=== PATIENT | female | born 1990 | race Caucasian/White ===

== ENCOUNTER 2024-01-27 10:49 | Emergency (ER) | payer BC ==
[2024-01-27 10:54] VITALS: BP 129/80; RESP 20; TEMP 98.6; BMI 35.4
[2024-01-27] MEDS ORDERED: DICLOXACILLIN SODIUM 250 MG CAPSULE PO ONE (12:11)
[2024-01-27] MEDS: ACETAMINOPHEN 1000 MG/100 ML BAG IVPB ONE (12:28)
[2024-01-27] MEDS: SODIUM CHLORIDE 1,000 ML IV STA (12:29)
[2024-01-27] MEDS: VANCOMYCIN 1,000 MG in DEXTROSE 5%-WATER - 250 ML IVPB ONE (12:29)
[2024-01-27] MEDS: CEFAZOLIN 1 GM in DEXTROSE 5%-WATER - 50 ML IVPB ONE (12:29)
[2024-01-27] MEDS ORDERED: ACETAMINOPHEN 325 MG TABLET (FP) ONE (12:34)
[2024-01-27] MEDS: ACETAMINOPHEN 325 MG TABLET (FP) PO ONE (12:40)
[2024-01-27 13:28] VITALS: PULSE 98
== END 2024-01-27 13:28 | disposition home or self-care (01) ==
LOC: JER 10:49
DX: N61.0 Mastitis without abscess (principal); N64.4 Mastodynia
CPT/HCPCS: 99283-25